=== PATIENT | male | born 1970 | race Caucasian/White ===

== ENCOUNTER 2020-06-25 14:04 | Emergency (ER) | payer MEDICAID, SELFPAY ==
[~2020-06-25] VITALS: Ht 172.7 cm; Wt 90.7 kg
[2020-06-25 14:05] VITALS: Ht 172.7 cm; Wt 90.7 kg
[2020-06-25 14:10] VITALS: BP 160/99
== END 2020-06-25 14:10 | disposition home or self-care (01) ==
LOC: ED 14:04
DX: U07.1 COVID-19 (principal); I10 Essential (primary) hypertension